=== PATIENT | male | born 1945 | race Caucasian/White ===

== ENCOUNTER 2018-03-14 19:28 | Emergency (ER) | payer MEDICARE, BC ==
[2018-03-14] MEDS ORDERED: LIDOCAINE 1%/EPINEPHRINE INJ 20 ML VIAL INJ ONE (20:04)
[2018-03-14] MEDS ORDERED: CEPHALEXIN 500 MG CAPSULE PO ONE (20:05)
[2018-03-14] MEDS ORDERED: DIPH/PERTUSS(ACELL)/TETANUS VAC/PF 0.5 ML SYR (>=10YO) IM ONE (20:06)
--- NOTE | 2018-03-14 20:09 | ER Document Report ---
Addendum entered and electronically signed by JAKE ESPINOSA NP 03/14/18 21:27: Course - Re-evaluation Re-evalutation: 03/14/18 20:50 Dr. Murrieta to bedside for examination, recommends placing a drain in wound and then applying pressure dressing to help control bleeding at this time. - Vital Signs Vital signs: Temp Pulse Resp BP Pulse Ox 97.5 F 68 20 136/81 H 98 03/14/18 21:16 03/14/18 21:16 03/14/18 21:16 03/14/18 21:16 03/14/18 21:16 Procedures - Laceration/Wound Repair Left Hand Wound length (cm): 2 Wound's Depth, Shape: Linear Anesthetic type: 1% Lidocaine w/epi Volume Anesthetic (mLs): 1 Wound explored: No foreign body removed Irrigated w/ Saline (mLs): 200 Wound Repaired With: Sutures, [place] drain Suture Size/Type: 5:0, Nylon Number of Sutures: 5 Layer Closure?: No Post-procedure wound care: Sterile dressing applied Post-procedure NV exam normal: Yes Complications: No Notes: 03/14/18 21:26 Patient with bleeding initially, Lili drain placed and 5 sutures placed to wound. Pressure was held and bleeding stopped. Patient with no additional swelling noted to hand. Patient denies any paresthesia. Good cap refill <2 sec to all fingers. Hands back picture: 1 - lac Original Note: HPI - HPI Patient complains to provider of: hand lac Onset: This afternoon Onset/Duration: Sudden Pain Level: 0 Context: Patient states that he was feeding a Verónica that is aggressive who jumped up and clot him on the left hand. Patient states that he cleanse the wound and dressed it but it started to bleed again. Patient is concerned that he may need sutures. Associated Symptoms: Other - Left hand laceration Exacerbated by: Movement Relieved by: Denies Similar symptoms previously: No Recently seen / treated by doctor: No - ROS ROS below otherwise negative: Yes Systems Reviewed and Negative: Yes All other systems reviewed and negative - MUSCULOSKELETAL Musculoskeletal: REPORTS: Extremity pain - DERM Skin Color: Normal Skin Problems: Laceration <JAKE ESPINOSA - Last Filed: 03/14/18 20:05> <ALLISON KENT - Last Filed: 03/14/18 21:18> - HPI Time Seen by Provider: 03/14/18 19:59 Past Medical History - General Information source: Patient - Social History Smoking Status: Never Smoker Frequency of alcohol use: None Drug Abuse: None Lives with: Spouse/Significant other Family History: Reviewed & Not Pertinent - Past Medical History Cardiac Medical History: Reports: Hx Hypercholesterolemia Surgical Hx: Negative - Immunizations Immunizations up to date: No <FRANCISCAJAKE Griffin - Last Filed: 03/14/18 20:05> Vertical Provider Document - CONSTITUTIONAL Agree With Documented VS: Yes Exam Limitations: No Limitations General Appearance: WD/WN, No Apparent Distress - INFECTION CONTROL TRAVEL OUTSIDE OF THE [place] IN LAST 30 DAYS: No - HEENT HEENT: Atraumatic, Normocephalic - NECK Neck: Normal Inspection - RESPIRATORY Respiratory: Breath Sounds Normal, No Respiratory Distress - CARDIOVASCULAR Cardiovascular: Regular Rate, Regular Rhythm Pulses: Normal: Radial - MUSCULOSKELETAL/EXTREMETIES Musculoskeletal/Extremeties: MAEW, FROM Notes: no tendon deficit to L hand - NEURO Level of Consciousness: Awake, Alert, Appropriate Motor/Sensory: No Motor Deficit, No Sensory Deficit - DERM Integumentary: Warm, Dry, Laceration - 2 cm lac to dorsal L hand <JAKE ESPINOSA - Last Filed: 03/14/18 20:05> Course - Re-evaluation Re-evalutation: 03/14/18 20:[address] Orosco regarding patient presentation and management. Advises cleansing wound, closing it and prescribing Keflex. - Vital Signs Vital signs: Temp Pulse Resp BP Pulse Ox 98.5 F 80 16 143/79 H 96 03/14/18 19:44 03/14/18 19:44 03/14/18 19:44 03/14/18 19:44 03/14/18 19:44 <FRANCISCAJAKE Griffin - Last Filed: 03/14/18 20:05> - Vital Signs Vital signs: Temp Pulse Resp BP Pulse Ox 97.5 F 68 20 136/81 H 98 03/14/18 21:16 03/14/18 21:16 03/14/18 21:16 03/14/18 21:16 03/14/18 21:16 <ALLISON KENT - Last Filed: 03/14/18 21:18> Discharge <JAKE ESPINOSA - Last Filed: 03/14/18 20:05> <ALLISON KENT - Last Filed: 03/14/18 21:18> - Discharge Clinical Impression: Laceration of left hand Qualifiers: Encounter type: initial encounter Foreign body presence: without foreign body Qualified Code(s): S61.412A - Laceration without foreign body of left hand, initial encounter Condition: Stable Disposition: HOME, SELF-CARE Instructions: Laceration Care ([facility]), Prophylactic Antibiotic ([facility]), Tetanus Immunization Given ([facility]) Additional Instructions: Return immediately for any new or worsening symptoms Return in 2 days for a wound recheck Followup with your primary care provider, call tomorrow to make a followup appointment Suture removal in 10 days Follow up with Dr Stoddard, hand specialist for any persistent problems Prescriptions: Cephalexin Monohydrate [Keflex 500 mg Capsule] 500 mg PO Q6H 5 Days capsule Referrals: HUANG STODDARD DO [ACTIVE STAFF] - Follow up as needed
[2018-03-14 21:17] VITALS: BP 136/81
== END 2018-03-14 21:37 | disposition home or self-care (01) ==
LOC: ER 19:28
DX: S61.412A Laceration without foreign body of left hand, initial encounter (principal); W61.99XA Other contact with other birds, initial encounter; Y93.K9 Activity, other involving animal care
CPT/HCPCS: 99282; 90471; 90715; 12001; A9270; J3490

== ENCOUNTER 2018-03-16 10:10 | Emergency (ER) | payer MEDICARE, BC ==
[2018-03-16 10:20] VITALS: BP 142/78
--- NOTE | 2018-03-16 10:27 | ER Document Report ---
HPI - HPI Patient complains to provider of: Wound recheck Time Seen by Provider: 03/16/18 10:16 Quality of pain: No pain Pain Level: Denies Context: Patient presents for wound recheck for a laceration to the dorsal aspect of his left hand. Patient had been attacked by a Ver[place]ica and had a laceration that continue to bleed and had a drain placed in it 2 days ago. Patient denies any fever. Patient denies any bleeding. Patient has been compliant with taking his antibiotics. Associated Symptoms: denies: Fever Exacerbated by: Denies Relieved by: Denies Similar symptoms previously: No Recently seen / treated by doctor: Yes - ROS ROS below otherwise negative: Yes Systems Reviewed and Negative: Yes All other systems reviewed and negative - CONSTITUTIONAL Constitutional: DENIES: Fever - NEURO Neurology: DENIES: Weakness - DERM Skin Color: Ecchymosis Skin Problems: Laceration Past Medical History - General Information source: Patient - Social History Smoking Status: Never Smoker Frequency of alcohol use: None Drug Abuse: None Lives with: Spouse/Significant other Family History: Reviewed & Not Pertinent - Past Medical History Cardiac Medical History: Reports: Hx Hypercholesterolemia Renal/ Medical History: Denies: Hx Peritoneal Dialysis Surgical Hx: Negative - Immunizations Immunizations up to date: No Vertical Provider Document - CONSTITUTIONAL Agree With Documented VS: Yes Exam Limitations: No Limitations General Appearance: WD/WN, No Apparent Distress - INFECTION CONTROL TRAVEL OUTSIDE OF THE [place] IN LAST 30 DAYS: No - HEENT HEENT: Atraumatic, Normocephalic - NECK Neck: Normal Inspection - RESPIRATORY Respiratory: No Respiratory Distress - CARDIOVASCULAR Pulses: Normal: Radial - MUSCULOSKELETAL/EXTREMETIES Musculoskeletal/Extremeties: MAEW, FROM, Non-Tender, Edema - 1+ edema to left hand, ecchymosis to dorsal aspect of left hand. No purulent drainage. Patient with 5 intact sutures and Lili drain to laceration - NEURO Level of Consciousness: Awake, Alert, Appropriate Motor/Sensory: No Motor Deficit - DERM Integumentary: Warm, Dry, Laceration - Dorsal left hand 2 similar laceration Course - Re-evaluation Re-evalutation: 03/16/18 10:26 Patient without any fever, stable vital signs and no active bleeding. Drain removed, patient tolerated well. Discussed worsening symptoms that patient should return immediately for. - Vital Signs Vital signs: Temp Pulse Resp BP Pulse Ox 98.4 F 92 18 142/78 H 93 03/16/18 10:19 03/16/18 10:19 03/16/18 10:19 03/16/18 10:19 03/16/18 10:19 Discharge - Discharge Clinical Impression: Encounter for wound re-check Condition: Stable Disposition: HOME, SELF-CARE Instructions: Antibiotic Therapy ([facility]), Laceration Care ([facility]) Additional Instructions: Return immediately for any new or worsening symptoms Followup with your primary care provider as needed for recheck Return in 8 days for suture removal Daily dressing changes Monitor for any signs of infection, return for any increased redness, fever, purulent drainage, increased pain or concerning symptoms Referrals: BORIS NUNEZ MD [Primary Care Provider] - Follow up as needed
== END 2018-03-16 10:42 | disposition home or self-care (01) ==
LOC: ER 10:10
DX: S61.412D Laceration without foreign body of left hand, subsequent encounter (principal); W61 Contact with birds (domestic) (wild)
CPT/HCPCS: 99282